=== PATIENT | female | born 1940 | race Caucasian/White ===

== ENCOUNTER 2018-02-21 07:55 | Day surgery (SDC) | payer MEDICARE, OTHER ==
[~2018-02-21 07:55] MED LIST: KETOROLAC TROMETHAMINE 0.45% 4 DROP/0.4 ML DROPERETTE OD PRN
[2018-02-21] MEDS ORDERED: MIDAZOLAM 2 MG/2 ML INJ ONE (08:33)
[2018-02-21] MEDS: TETRACAINE HCL 0.5% OPH SOLN 4 ML OD PRN ×3 (08:56→09:37)
[2018-02-21] MEDS: TROPICAMIDE 1% OPH SOLN 3 ML OD PRN ×4 (08:57→09:22)
[2018-02-21] MEDS: CYCLOPENTOLATE 0.2%/PHENYLEPHRINE 1% OPH SOLN 2 ML OD PRN ×4 (08:57→09:22)
[2018-02-21] MEDS: BESIFLOXACIN HCL 0.6% OPH SUSP 5 ML BOTTLE OD PRN ×4 (08:58→10:03)
[2018-02-21] MEDS ORDERED: LIDOCAINE 1% INJ-PF (10 MG/ML) 30 ML SDV ONE (09:18)
[2018-02-21] MEDS ORDERED: EPINEPHRINE INJ/PF 1 MG/1 ML AMPULE ONE (09:18)
[2018-02-21] MEDS ORDERED: CHONDR SU A NA/HYALUR INTRAOC KIT (SURGICARE) ONE (09:19)
--- NOTE | 2018-02-21 21:57 | [facility] DISCHARGE SUMMARY E ---
[facility] Discharge Summary NAME: LACEY TERRELL AGE: 77Y ADMITTED: 02/21/2018 DISCHARGED: 02/21/2018 HOSPITAL COURSE: This is a 77-year-old who underwent cataract extraction of the right eye. DIAGNOSIS: CATARACT, RIGHT EYE. She underwent surgery because she was having trouble seeing small print. DISCHARGE INSTRUCTIONS: She should be on a regular diet. No bending at her waist, no heavy lifting. She should use her Besivance, PROLENSA, and Durezol at 3 p.m. and 8 p.m. and sleep with a rigid shield. I will see her for her 1 day postoperative tomorrow. DICTATING PHYSICIAN: JOSEPHINE SINGH M.D. 5020M 2152 PHY#: [id number] ID: [id number] JOB#: [id number] ACCT: [id number] cc:JOSEPHINE SINGH M.D. >
--- NOTE | 2018-02-21 21:57 | [facility] OPERATIVE REPORT E ---
[facility] Operative Report NAME: LACEY TERRELL AGE: 77Y DATE OF SURGERY: 02/21/2018 ROOM: PREOPERATIVE DIAGNOSIS: CATARACT, RIGHT EYE. POSTOPERATIVE DIAGNOSIS: CATARACT, RIGHT EYE. OPERATION: Cataract extraction with insertion of an IOL of the right eye. SURGEON: JOSEPHINE SINGH M.D. ANESTHESIA: Topical. PROCEDURE: After obtaining appropriate consent, the patient's right eye was prepped and draped in sterile fashion as well as the surgeon in a sterile manner and cataract surgery was started. First a paracentesis blade was used to make a side-port incision. Viscoelastic was used to inflate the anterior chamber. Next a 2.4 mm incision was made with a 2.4 mm blade, clear corneal temporally. A continuous capsulorrhexis was made using a cystotome and Utrata forceps. Following this hydrodissection was carried out to make the lens fully loose and mobile and it was rotated 90 degrees. Following this, a zhjzji-ate-xkwfxpz technique was used to phacoemulsify the lens with a CDE of 37.16. The remaining cortex was removed with irrigation/aspiration. Provisc was instilled into the capsular bag to inflate the bag. A SN60WF, 21.0 diopter lens was placed. The remaining viscoelastic material was removed with irrigation/aspiration. Following this, the incision was found to be watertight. Besivance was instilled into the eye and a protective shield was placed over the eye. The patient returned to the postoperative recovery in stable condition. DICTATING PHYSICIAN: JOSEPHINE SINGH M.D. 5020M 2151 PHY#: [id number] ID: [id number] JOB#: [id number] ACCT: [id number] cc:JOSEPHINE SINGH M.D. >
== END 2018-02-21 10:52 | disposition home or self-care (01) ==
LOC: SC 07:55
PROVIDERS: ATTEND Internal Medicine
DX: H25.13 Age-related nuclear cataract, bilateral (principal); I10 Essential (primary) hypertension; M19.90 Unspecified osteoarthritis, unspecified site; Z79.899 Other long term (current) drug therapy; Z88.0 Allergy status to penicillin
CPT/HCPCS: 66984; V2632; J2250; J3490 ×3; A9270; J0171; 142

== ENCOUNTER 2018-03-14 08:35 | Day surgery (SDC) | payer MEDICARE, OTHER ==
[~2018-03-14 08:35] MED LIST changes: -KETOROLAC TROMETHAMINE 0.45% 4 DROP/0.4 ML DROPERETTE OD PRN; +KETOROLAC TROMETHAMINE 0.45% 4 DROP/0.4 ML DROPERETTE OS PRN
[2018-03-14] MEDS: CYCLOPENTOLATE 0.2%/PHENYLEPHRINE 1% OPH SOLN 2 ML OS PRN ×3 (09:16→09:37)
[2018-03-14] MEDS: TROPICAMIDE 1% OPH SOLN 3 ML OS PRN ×3 (09:16→09:37)
[2018-03-14] MEDS: BESIFLOXACIN HCL 0.6% OPH SUSP 5 ML BOTTLE OS PRN ×4 (09:16→10:16)
[2018-03-14] MEDS: TETRACAINE HCL 0.5% OPH SOLN 4 ML OS PRN ×3 (09:17→09:56)
[2018-03-14] MEDS ORDERED: MIDAZOLAM 2 MG/2 ML INJ ONE (09:31)
[2018-03-14] MEDS: LIDOCAINE 1% INJ-PF (10 MG/ML) 30 ML SDV ONE ×2 (09:46→10:07)
[2018-03-14] MEDS: CHONDR SU A NA/HYALUR INTRAOC KIT (SURGICARE) ONE ×2 (09:59→10:07)
[2018-03-14] MEDS: DORZOLAMIDE HCL 2%/TIMOLOL MALEAT 0.5% OPH SOLN 10 ML OS PRN ×3 (09:59→10:16)
[2018-03-14] MEDS: EPINEPHRINE INJ/PF 1 MG/1 ML AMPULE ONE ×2 (09:59→10:07)
--- NOTE | 2018-03-15 01:07 | [facility] OPERATIVE REPORT E ---
[facility] Operative Report NAME: LACEY TERRELL AGE: 77Y DATE OF SURGERY: 03/14/2018 ROOM: PREOPERATIVE DIAGNOSIS: CATARACT, LEFT EYE. POSTOPERATIVE DIAGNOSIS: CATARACT, LEFT EYE. OPERATION: Cataract extraction with insertion of an IOL of the left eye. SURGEON: JOSEPHINE SINGH M.D. ANESTHESIA: Topical. PROCEDURE: After obtaining appropriate consent, the patient's left eye was prepped and draped in sterile fashion as well as the surgeon in a sterile manner and cataract surgery was started. First a paracentesis blade was used to make a side-port incision. Viscoelastic was used to inflate the anterior chamber. Next a 2.4 mm incision was made with a 2.4 mm blade, clear corneal temporally. A continuous capsulorrhexis was made using a cystotome and Utrata forceps. Following this hydrodissection was carried out to make the lens fully loose and mobile and it was rotated 90 degrees. Following this, a aszdjo-rhh-sehizba technique was used to phacoemulsify the lens with a CDE of 26.12. The remaining cortex was removed with irrigation/aspiration. Provisc was instilled into the capsular bag to inflate the bag. A SN60WF, 21.0 diopter lens was placed. The remaining viscoelastic material was removed with irrigation/aspiration. Following this, the incision was found to be watertight. Besivance was instilled into the eye and a protective shield was placed over the eye. The patient returned to the postoperative recovery in stable condition. DICTATING PHYSICIAN: JOSEPHINE SINGH M.D. 5020M 0105 PHY#: [id number] ID: [id number] JOB#: [id number] ACCT: [id number] cc:JOSEPHINE SINGH M.D. >
--- NOTE | 2018-03-15 01:13 | [facility] DISCHARGE SUMMARY E ---
[facility] Discharge Summary NAME: LACEY TERRELL AGE: 77Y ADMITTED: 03/14/2018 DISCHARGED: 03/14/2018 HOSPITAL COURSE: This is a 77-year-old female who underwent cataract extraction of the left eye. DIAGNOSIS: CATARACT, LEFT EYE. She underwent surgery because she was having difficulty seeing small print. DISCHARGE INSTRUCTIONS: She should be on a regular diet. No bending at her waist, no heavy lifting. She should use her Besivance, PROLENSA, and Durezol at 3 p.m. and 8 p.m. and sleep with a rigid shield. I will see her for her 1 day postoperative tomorrow. DICTATING PHYSICIAN: JOSEPHINE SINGH M.D. 5020M 0106 PHY#: [id number] ID: [id number] JOB#: [id number] ACCT: [id number] cc:JOSEPHINE SINGH M.D. >
== END 2018-03-14 10:52 | disposition home or self-care (01) ==
LOC: SC 08:35
PROVIDERS: ATTEND Internal Medicine
DX: H25.12 Age-related nuclear cataract, left eye (principal); Z96.1 Presence of intraocular lens; I10 Essential (primary) hypertension; Z79.899 Other long term (current) drug therapy; Z88.0 Allergy status to penicillin
CPT/HCPCS: 66984; V2632; J2250; J3490 ×3; A9270; J0171; 142